=== PATIENT | female | born 1985 | race Caucasian/White ===

== ENCOUNTER 2016-12-05 22:45 | Emergency (ER) | payer OTHER ==
[~2016-12-05] VITALS: Ht 157.5 cm; Wt 50.8 kg
[2016-12-05 22:50] VITALS: BP 107/52
--- NOTE | 2016-12-05 23:00 | NUR ---
TO BED 4 A 30 YO FEMALE BIBSELF C/O RIGHT RIB SHARP PAIN, NOTED "POSSIBLE MASS" YESTERDAY NIGHT. ALSO STATES "ITS HARDER TO BREATH." NO SOB. NAD NOTED. VSS. AMBULATING WITH STEADY GAIT. GOWNED. COMFORT MEASURES RENDERED.
--- NOTE | 2016-12-05 23:05 | NUR ---
DR WICK AT BEDSIDE TO EVAL.
--- NOTE | 2016-12-05 23:24 | NUR ---
Patient walked out from er. vss. ambulating with steady gait. Dr Steiner notified.
== END 2016-12-05 23:50 | disposition left against medical advice (07) ==
LOC: ER 22:50
DX: R07.81 Pleurodynia (principal); Z80.3 Family history of malignant neoplasm of breast
CPT/HCPCS: 99281; A4606; Z7610; Z7502